=== PATIENT | female | born 1960 | race Caucasian/White ===

== ENCOUNTER 2018-02-04 00:36 | Inpatient (IN) | payer OTHER ==
[2018-02-03 14:35] LABS: INR 0.97
--- NOTE | 2018-02-03 20:38 | HISTORY AND PHYSICAL ---
DATE OF ADMISSION: February 04, 2018 IDENTIFICATION/CHIEF COMPLAINT Justa is a 57-year-old woman with the chief complaint of right knee pain. HISTORY OF PRESENT ILLNESS Patient has a history of a meniscal root tear which has led to progressive posttraumatic arthritis in her knee. This has been debilitating and refractory to conservative measures. Surgery is indicated to relieve symptoms after failure of nonoperative care. PAST MEDICAL HISTORY 1. Chest pain, noncardiac. 2. Hypercholesterolemia. 3. Anxiety/depression. PAST SURGICAL HISTORY Hand operation. ALLERGIES 1. PENICILLIN which causes hives and swelling. 2. CODEINE causes nausea and vomiting, not a true drug allergy. CURRENT MEDICATIONS 1. Simvastatin 80 mg p.o. q. day. 2. Trazodone 50 mg p.o. at bedtime. 3. Fluoxetine 10 mg p.o. q. day. 4. Voltaren gel as needed. 5. Baby aspirin 81 mg p.o. q. day. FAMILY HISTORY Notable for sister with breast cancer and stroke, and a brother with diabetes. SOCIAL HISTORY Negative for tobacco use. She drinks alcohol about three beverages per week. Denies abuse. REVIEW OF SYSTEMS Otherwise noncontributory. PHYSICAL EXAMINATION GENERAL: Well-developed, well-nourished female. Appears stated age. HEENT: She is normocephalic, atraumatic. NECK: Supple. LUNGS: Clear. HEART: Regular. ABDOMEN: Soft. ORTHOPEDIC: The right knee has varus alignment. Effusion is present. She has crepitus at the end range of motion. Stiff knee on range of motion. Gross stability is good. Extensor function intact. Skin condition is good. Calves nontender. Neurovascular function intact. IMAGING Radiographs demonstrate end-stage knee arthritis. ASSESSMENT Right knee end-stage degenerative joint disease, progressively painful and debilitating, refractory to conservative care. PLAN Per patient request, we are going to proceed with total knee arthroplasty. Nature of this procedure, as well as risks, benefits, and nonoperative alternatives were reviewed. The risks of the procedure include, but are not limited to , major medical or anesthetic complication, infection, neurovascular injury, blood transfusion, stiffness, scarring, fracture, tendon rupture, instability, implant loosening, migration, or failure, persistent or recurrent pain, need for additional surgery, and others unforeseen. She understands and wishes to proceed. Signed permit is placed in the chart. No guarantees are given or implied. [facility]
[~2018-02-04] VITALS: Ht 157.5 cm; Wt 75.7 kg
[2018-02-04] VITALS (10 sets, daily range): BP systolic 91–133; BP diastolic 48–84
[~2018-02-04 00:36] MED LIST: ACETAMINOPHEN 500 MG TAB PO ONE; ASPI-1471 PO; CELECOXIB 200 MG CAP PO ONE; CHOL10005 PO; FLUO-177 PO; GLUC100026 PO; PREGABALIN 150 MG CAPSULE PO ONE; SIMV-49 PO; TRAZ50TA34 PO; VITA100T4 PO; ZINC30TA5 PO
[2018-02-04] MEDS ORDERED: ONDANSETRON 4 MG/2 ML VIAL ONE (11:48)
[2018-02-04] MEDS ORDERED: DEXAMETHASONE SOD 4 MG/ML VIAL ONE (11:48)
[2018-02-04] MEDS ORDERED: METOCLOPRAMIDE 10 MG/2 ML SDV ONE (11:48)
[2018-02-04] MEDS ORDERED: LIDOCAINE MPF 1% 5 ML VIAL ONE (11:48)
[2018-02-04] MEDS ORDERED: fentaNYL CITR 100 MCG/2 ML AMP ONE (11:50)
[2018-02-04] MEDS ORDERED: MIDAZOLAM 2 MG/2 ML VIAL IVP PRN (12:45)
[2018-02-04] MEDS ORDERED: CELECOXIB 200 MG CAP PO ONE (12:45)
[2018-02-04] MEDS ORDERED: LIDOCAINE/SOD BICARB 8.4% SYR ID ONE (12:45)
[2018-02-04] MEDS ORDERED: PREGABALIN 150 MG CAPSULE PO ONE (12:45)
[2018-02-04] MEDS ORDERED: CLINDAMYCIN 900 MG/D5W 50 ML 50 ML IVPB ONE (12:45)
[2018-02-04] MEDS ORDERED: ACETAMINOPHEN 500 MG TAB PO ONE (12:45)
[2018-02-04] MEDS ORDERED: NORMOSOL R SOLN(*) 1000 ML BAG 1,000 ML IV PRN ×2 (12:45→17:00)
[2018-02-04] MEDS ORDERED: cloNIDine EPIDUR INJ 100MCG/ML 40 MCG, ROPIVACAINE 0.5% 20 ML VIAL 25 ML, EPINEPHrine H... INJ ONE (12:45)
[2018-02-04] MEDS ORDERED: FAMOTIDINE 20 MG TAB PO ONE (12:45)
[2018-02-04] MEDS ORDERED: TRANEXAMIC AC 1000 MG/10ML SDV 1,000 MG in DEXTROSE 5% 50 ML BAG 50 ML IV ONE (12:45)
[2018-02-04] MEDS ORDERED: VANCOMYCIN 1 GM VIAL ONE (13:48)
[2018-02-04] MEDS ORDERED: PROPOFOL 10 MG/1 ML VIAL ONE (14:17)
[2018-02-04] MEDS ORDERED: NS 0.9% IRRIGATION 1000ML PLCT IR ONE (14:28)
[2018-02-04] MEDS ORDERED: LACTATED RINGER 3000 ML BAG IR ONE (14:28)
[2018-02-04] MEDS ORDERED: GLYCOPYRROLATE 0.2MG/ML 1 ML INJ ONE (14:53)
[2018-02-04] MEDS ORDERED: BENZOCAINE/MENTHOL 1 EACH LOZG PO PRN (17:00)
[2018-02-04] MEDS ORDERED: ZOLPIDEM TARTRATE 5 MG TAB PO PRN (17:00)
[2018-02-04] MEDS ORDERED: BISACODYL 10 MG SUPP PR PRN (17:00)
[2018-02-04] MEDS ORDERED: DIAZEPAM 5 MG TAB PO PRN (17:00)
[2018-02-04] MEDS ORDERED: diphenhydrAMINE 25 MG CAP PO PRN (17:00)
[2018-02-04] MEDS ORDERED: diphenhydrAMINE 50 MG/ML VIAL IVP PRN (17:00)
[2018-02-04] MEDS ORDERED: PROMETHAZINE 25 MG/ML 1 ML AMP IVP PRN (17:00)
[2018-02-04] MEDS ORDERED: FLUSH 10 ML SYR IVP PRN (17:00)
[2018-02-04] MEDS ORDERED: MAGNESIUM HYDROXIDE* 30ML UDCP PO PRN (17:00)
[2018-02-04] MEDS ORDERED: ACETAMINOPHEN 325 MG TAB PO PRN (17:00)
--- NOTE | 2018-02-04 17:08 | RADIOLOGY IMAGING REPORT ---
FACILITY: [facility] [place] PATIENT NAME: Justa Wright : 1960 MR: [id number] V: [id number] EXAM DATE: ORDERING PHYSICIAN: ALMITA JEAN TECHNOLOGIST: [place] [facility] [place] : 1960 Visit/Account:[id number] Date of Sevice: 02/04/2018 Exam type: KNEE LIMITED RIGHT History: POST-OP PLACEMENT Comparison: None. Findings: Two views of the right knee demonstrate a right knee arthroplasty in good anatomic alignment. Soft t issue gas and skin magdalene project over the anterior aspect of this postoperative knee IMPRESSION: 1. Right knee arthroplasty appears in good anatomic alignment Report Dictated By: Tiesha Negrete MD at 02/04/2018 5:03 PM Report E-Signed By: Tiesha Negrete MD at 02/04/2018 5:04 PM WSN:[id number]
--- NOTE | 2018-02-04 17:42 | OPERATIVE REPORT 1 ---
EVENT DATE: February 04, 2018 SURGEON: Riki Lewis MD ANESTHESIOLOGIST: Ty Fish MD ANESTHESIA: General plus spinal. HOSPICE MASSAGE THERAPIST: LISA Daniel PREOPERATIVE DIAGNOSIS Right knee end-stage degenerative joint disease. POSTOPERATIVE DIAGNOSIS Right knee end-stage degenerative joint disease. PROCEDURE PERFORMED Right total knee arthroplasty. ESTIMATED BLOOD LOSS Minimal. DRAINS None. SPECIMENS None. COMPLICATIONS None apparent. TOURNIQUET TIME 15 minutes IMPLANTS USED Fitz Lodgeathlon knee system with a 3 right PS femur, 3 standard universal tibial baseplate, a 33 mm universal, cemented, all-polyethylene patellar button, and a 16 mm PS tibial tray liner. Polyethylene is X3. INDICATIONS Justa is a 58-year-old woman with intractable pain and disability related to end-stage knee arthritis after meniscal root tear. Surgery is indicated to relieve pain and restore function after failure of nonoperative measures. DESCRIPTION OF PROCEDURE Patient taken to the operating room and placed supine on the operating table. Spinal block is administered by the anesthesiologist. General anesthesia is induced. Antibiotics and TXA are administered IV. Right lower extremity is prepped and draped in the usual sterile fashion for knee arthroplasty. Limb is exsanguinated with an Esmarch bandage. Tourniquet inflated to 250 mmHg. Midline longitudinal incision made, carried down through the skin and subcutaneous tissue to the deep fascia. Dissection is carried far enough medially to allow medial parapatellar arthrotomy be performed. Patella is everted. Knee is brought into flexed position. Fat pad, anterior horns of the menisci, and the cruciate ligaments are debrided. A gentle subperiosteal release is started medially in a titrated fashion to start to balance the knee. A step drill is used to enter the distal femur. A 10-inch long alignment guide is used to engage the isthmus, cut set for 6 degrees of valgus relative to the anatomic axis. The 10 mm resection block is applied, distal femur pinned, and cuts made with an oscillating saw. AP sizing guide is applied to the distal femoral cut, positioned for 3 degrees of external rotation relative to the posterior condyles. The size 3 is optimal without risk of notching. The four-in-one cutting block is applied. Anterior, posterior, posterior chamfer, and anterior chamfer cuts are made respectively. PS block is applied and centered. Medial and lateral bone is removed through the box. Trial femur has nice [id number] fit. Attention is turned to tibial preparation. The extramedullary guide is applied, positioned for varus, valgus, posterior slope, and rotation. This is set to resect 9 mm from the relatively intact lateral tibial plateau. It is dropped down a couple millimeters to ensure an adequate cut. Block is pinned. Extramedullary alignment check is made. Cuts made with an oscillating saw. After osteophyte removal and a bit of additional medial release, gaps are balanced and symmetric with no additional formal balancing required. The 3 tibial baseplate provides optimum bony coverage without soft tissue overhang. This is inserted along with the trial liner and trial femur. Knee is brought to full extension. Patella is taken from the starting thickness of 22 mm to a residual of 14 with a patellar clamp and oscillating saw. The 33 provides optimum bony coverage without soft tissue overhang. Lug holes are drilled. Patella tracks nicely with the no-touch technique. Final tibial preparation consists of assuring ideal rotation and translation of the component. The boss is reamed. Fin is punched. Surfaces are lavaged. A large cyst in the tibia is excavated, and this area is perforated and bone grafted with some extra bone. Bone plug is placed in the femoral canal. A mix of methacrylate is made, and the components are cemented in a single stage. Once the cement is fully polymerized, tourniquet is deflated, and meticulous hemostasis is assured. The 16 PS tibial tray liner fills up the gap ideally, allowing the knee to drop to full extension without hyperextension, providing optimal soft tissue tension and stability. The tray is lavaged and dried. The actual liner is locked into the baseplate. Joint is reduced. Arthrotomy is closed in flexion with #2 Ethibond, subcutaneous tissue with 3-0 Vicryl, skin with surgical magdalene. Xeroform 4 x 4's applied as a dry, sterile dressing and compression wrap. The patient was awakened from anesthesia and taken to the recovery room in stable condition having tolerated the procedure well. Plan is for standard TKA rehab protocol. [facility]
[2018-02-04] MEDS ORDERED: traZODone HCL 50 MG TAB PO PRN (19:10)
[2018-02-04] MEDS: CELECOXIB 200 MG CAP PO SCH (19:11)
[2018-02-04] MEDS: APAP/HYDROCODONE 325/7.5 TAB PO PRN (19:11)
--- NOTE | 2018-02-04 19:34 | Hospitalist Progress Note ---
Subjective Progress Notes Subjective No cp/sob. 1700cc of crystalloid, TXA and dexamethasone given. Physical Exam Vital Signs Date Time Temp Pulse Resp B/P (MAP) Pulse Ox O2 Delivery O2 Flow Rate FiO2 02/04/18 18:30 82 95 Nasal Cannula 1.0 02/04/18 17:55 12 02/04/18 17:55 97.6 General Appearance: Alert, Awake, No Acute Distress Cardiovascular: Regular Rate and Rhythm Respiratory: Clear to Auscultation Extremities: No Edema Assessment and Plan Problems: (1) Status post knee replacement Status: Acute Assessment & Plan: No CV/pulmonary issues. No h/o DVT/PE. The patient will be on ASA 325mg a day for 30 days after surgery for blood clot prevention. (2) Hyperlipemia Status: Chronic Assessment & Plan: Continue chronic simvastatin. (3) Insomnia Status: Chronic Assessment & Plan: Continue chronic trazodone, but on a prn basis. (4) Depression Status: Chronic Assessment & Plan: Continue chronic fluoxetine. Because of the interaction with Valium, Valium was stopped. Problem Qualifiers (1) Status post knee replacement: Laterality: right Qualified Codes: Z96.651 - Presence of right artificial knee joint KAYODE ANDERSON MD Feb 04, 2018 19:34
[2018-02-04] MEDS: SIMVASTATIN 20 MG TAB PO SCH (20:30)
[2018-02-04] MEDS: CLINDAMYCIN 900 MG/D5W 50 ML 50 ML IVPB SCH (22:54)
[2018-02-05 03:08] VITALS: BP 112/71
[2018-02-05] MEDS: APAP/HYDROCODONE 325/7.5 TAB PO PRN ×4 (05:47→20:20)
[2018-02-05] MEDS: CLINDAMYCIN 900 MG/D5W 50 ML 50 ML IVPB SCH ×2 (05:47→14:28)
[2018-02-05] MEDS ORDERED: FLUoxetine HCL 20 MG CAP PO SCH (09:00)
[2018-02-05] MEDS: ASPIRIN 325 MG TAB PO SCH (09:11)
[2018-02-05] MEDS: CELECOXIB 200 MG CAP PO SCH ×2 (09:11→17:08)
[2018-02-05] MEDS ORDERED: FLUoxetine HCL 20 MG CAP PO PRN (10:35)
--- NOTE | 2018-02-05 11:25 | Hospitalist Progress Note ---
Subjective Progress Notes Subjective She has no complaints this morning. She had no acute events overnight. Patient Complains of: Cardiovascular: No: Chest Pain Respiratory: No: Shortness of Breath Physical Exam Vital Signs Date Time Temp Pulse Resp B/P (MAP) Pulse Ox O2 Delivery O2 Flow Rate FiO2 02/05/18 03:08 97.5 63 16 112/71 (85) 94 Nasal Cannula 1.0 Intake and Output 02/05/18 00:00 Intake Total 1857 ml Balance 1857 ml IV Total 1857 ml # Voids 1 General Appearance: Alert, Awake, No Acute Distress, Afebrile Neuro: No Gross deficits Cardiovascular: Regular Rate and Rhythm Respiratory: No Respiratory Distress, Clear to Auscultation GI: Soft and Non-Tender Psych: Alert & Oriented X3, Appropriate Mood & Affect Assessment and Plan Problems: (1) Status post knee replacement Status: Acute Assessment & Plan: No CV/pulmonary issues. No h/o DVT/PE. The patient will be on ASA 325mg a day for 30 days after surgery for blood clot prevention. (2) Hyperlipemia Status: Chronic Assessment & Plan: Continue chronic simvastatin. (3) Insomnia Status: Chronic Assessment & Plan: Continue chronic trazodone, but on a prn basis. (4) Depression Status: Chronic Assessment & Plan: Continue chronic fluoxetine. Because of the interaction with Valium, Valium was stopped. Exam Sepsis Risk: No Definite Risk Problem Qualifiers (1) Status post knee replacement: Laterality: right Qualified Codes: Z96.651 - Presence of right artificial knee joint ENIO GALDAMEZ [facility] Feb 05, 2018 11:25
[2018-02-05] MEDS ORDERED: ASPI-757 PO (11:26)
[2018-02-05 11:39] VITALS: Ht 157.5 cm; Wt 75.7 kg
[2018-02-05 12:22] VITALS: BP 100/58
[2018-02-05] MEDS ORDERED: HYDR-654 PO (12:26)
[2018-02-05 14:32] VITALS: BP 104/60
[2018-02-05 19:17] VITALS: BP 112/60
[2018-02-05] MEDS: SIMVASTATIN 20 MG TAB PO SCH (20:20)
[2018-02-05] MEDS ORDERED: KETOROLAC 15 MG/ML VIAL IVP ONE (20:55)
[2018-02-05] MEDS ORDERED: MORPHINE 4 MG/ML SDV IVP ONE (21:25)
[2018-02-05 23:09] VITALS: BP 116/72
[2018-02-06] MEDS: APAP/HYDROCODONE 325/7.5 TAB PO PRN ×4 (03:36→12:56)
[2018-02-06 03:37] VITALS: BP 125/92
[2018-02-06] MEDS ORDERED: NS(*) 0.9% 1000 ML BAG 1,000 ML ONE (04:03)
[2018-02-06 07:30] VITALS: BP 129/64
[2018-02-06] MEDS: CELECOXIB 200 MG CAP PO SCH (08:14)
--- NOTE | 2018-02-06 08:14 | Hospitalist Progress Note ---
Subjective Progress Notes Subjective The patient appears teary upon entering the room. She reports she had a rough night, secondary to pain at the surgical site. Pain is now getting better with the pain. Patient Complains of: Cardiovascular: No: Chest Pain Respiratory: No: Shortness of Breath Physical Exam Vital Signs Date Time Temp Pulse Resp B/P (MAP) Pulse Ox O2 Delivery O2 Flow Rate FiO2 02/06/18 07:30 98.6 74 18 129/64 (85) 97 Nasal Cannula 0.5 Intake and Output 02/06/18 06:59 Intake Total 862 ml Balance 862 ml Intake Oral 862 ml # Voids 4 General Appearance: Alert, Awake, No Acute Distress, Afebrile Neuro: No Gross deficits Cardiovascular: Regular Rate and Rhythm Respiratory: No Respiratory Distress, Clear to Auscultation GI: Soft and Non-Tender Psych: Alert & Oriented X3, Appropriate Mood & Affect Assessment and Plan Problems: (1) Status post knee replacement Status: Acute Assessment & Plan: No CV/pulmonary issues. No h/o DVT/PE. The patient will be on ASA 325mg a day for 30 days after surgery for blood clot prevention. (2) Hyperlipemia Status: Chronic Assessment & Plan: Continue chronic simvastatin. (3) Insomnia Status: Chronic Assessment & Plan: Continue chronic trazodone, but on a prn basis. (4) Depression Status: Chronic Assessment & Plan: Continue chronic fluoxetine. She reports she has been taking her medication on a prn basis. Educated patient the risks of increased suicidal thoughts with prn administration. She states she will start to take her medication as directed, as it would help her anxiety. Exam Sepsis Risk: No Definite Risk Problem Qualifiers (1) Status post knee replacement: Laterality: right Qualified Codes: Z96.651 - Presence of right artificial knee joint ENIO GALDAMEZ [facility] Feb 06, 2018 08:14
[2018-02-06] MEDS ORDERED: FLUoxetine HCL 20 MG CAP PO SCH (09:00)
[2018-02-06] MEDS: ASPIRIN 325 MG TAB PO SCH (09:01)
[2018-02-06] MEDS ORDERED: OXYC-823 PO (11:12)
[2018-02-06] MEDS ORDERED: CELE-1 PO (11:13)
[2018-02-06 11:48] VITALS: BP 135/74
[2018-02-06] MEDS ORDERED: CELECOXIB 200 MG CAP PO SCH ×2 (17:00)
== END 2018-02-06 13:00 | disposition home or self-care (01) | DRG 470 ==
LOC: OR 00:36 → MED 17:55
PROVIDERS: ADMIT Orthopaedic Surgery; ATTEND Orthopaedic Surgery
PROC: 0SRC0J9 Replacement of Right Knee Joint with Synthetic Substitute, Cemented, Open Approach (ICD-10-PCS; principal; 2018-02-04 14:17)
DX: M17.31 Unilateral post-traumatic osteoarthritis, right knee (principal); M21.161 Varus deformity, not elsewhere classified, right knee; E78.00 Pure hypercholesterolemia, unspecified; F41.8 Other specified anxiety disorders; E78.5 Hyperlipidemia, unspecified; G47.00 Insomnia, unspecified; F32.9 Major depressive disorder, single episode, unspecified; Z88.0 Allergy status to penicillin; Z88.8 Allergy status to other drugs, medicaments and biological substances
CPT/HCPCS: 36415; 85610; 86850; 86900; 86901; 97161; C1713; C1776; J0171; J0735; J1100; J1885; J2001; J2250; J2270; J2405; J2765; J2795; J3010; J3370; J3490; J7050; J7060; Q0163